=== PATIENT | male | born 1980 ===

== ENCOUNTER 2018-08-17 13:25 | Inpatient (IN) | payer OTHER ==
[2018-08-17] MEDS ORDERED: Albuterol/Ipratropium NEB.SOL* Albuterol 2.5 MG/Ipratropium 0.5 MG 3 ML INH PRN (14:32)
[2018-08-17] MEDS ORDERED: Gabapentin CAP(*) 300 MG PO ONE (14:36)
[2018-08-17] MEDS: Gabapentin CAP(*) 300 MG PO SCH (21:53)
[2018-08-17] MEDS: Enoxaparin(*) 30 MG/0.3 ML SYR SUBCUT SCH (21:53)
[2018-08-17] MEDS: Senna TAB PO SCH (21:55)
[2018-08-17] MEDS: Docusate CAP* 100 MG PO SCH (21:55)
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
[2018-08-18] MEDS: Enoxaparin(*) 30 MG/0.3 ML SYR SUBCUT SCH ×2 (08:06→21:28)
[2018-08-18] MEDS: Gabapentin CAP(*) 300 MG PO SCH ×3 (08:06→21:26)
[2018-08-18] MEDS: Docusate CAP* 100 MG PO SCH ×3 (08:06→21:27)
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
[2018-08-18] MEDS: oxyCODONE TAB* 5 MG TAB PO PRN (17:04)
[2018-08-18] MEDS: Senna TAB PO SCH (21:22)
[2018-08-18] MEDS: Acetaminophen TAB* 325 MG PO PRN (21:25)
[2018-08-18] MEDS: Melatonin 3 MG TAB PO PRN (21:28)
[2018-08-19] MEDS: Docusate CAP* 100 MG PO SCH ×2 (09:01→21:18)
[2018-08-19] MEDS: Enoxaparin(*) 30 MG/0.3 ML SYR SUBCUT SCH ×2 (09:01→21:17)
[2018-08-19] MEDS: Gabapentin CAP(*) 300 MG PO SCH ×3 (09:01→21:17)
[2018-08-19] MEDS: Acetaminophen TAB* 325 MG PO PRN ×2 (12:40→21:16)
[2018-08-19] MEDS: oxyCODONE TAB* 5 MG TAB PO PRN (12:52)
--- NOTE | 2018-08-19 17:01 | PN ---
Progress Note Date of Service: 08/19/18 Note: KEVIN ANTOINE was visited. Therapy notes read and reviewed. His pain is well controlled. He does report occasional jolts down his left leg, which quickly pass. Current Medications: Active Medications Generic Name Dose Route Start Last Admin Trade Name Freq PRN Reason Stop Dose Admin Acetaminophen 650 mg 08/18/18 18:38 08/19/18 12:40 Tylenol Tab* PO 650 mg Q6H PRN Administration PAIN Albuterol/Ipratropium 1 neb 08/17/18 14:32 Duoneb (Albuterol 2.5 Mg/Ipratropium 0.5 Mg) INH Q6H PRN SOB/WHEEZING Docusate Sodium 100 mg 08/17/18 21:00 08/19/18 09:01 Colace Cap* PO 100 mg BID ISREAL Administration Enoxaparin Sodium 30 mg 08/17/18 21:00 08/19/18 09:01 Lovenox(*) SUBCUT 30 mg BID ISREAL Administration Gabapentin 300 mg 08/17/18 21:00 08/19/18 14:18 Neurontin Cap(*) PO 300 mg TID ISREAL Administration Magnesium Hydroxide 30 ml 08/17/18 14:19 Milk Of Magnesia Liq* PO Q6H PRN CONSTIPATION Melatonin 3 mg 08/18/18 16:11 08/18/18 21:28 Melatonin PO 3 mg BEDTIME PRN Administration SLEEP Protocol Methocarbamol 750 mg 08/17/18 14:33 Robaxin Tab* PO TID PRN SPASMS Oxycodone HCl 5 mg 08/17/18 14:31 08/19/18 12:52 Roxycodone Tab* PO 5 mg Q4H PRN Administration PAIN - MODERATE TO SEVERE Senna 2 tab 08/17/18 21:00 08/18/18 21:22 Senokot Tab* PO Not Given BEDTIME [facility] Vital Signs: Vital Signs Temp Pulse Resp BP Pulse Ox 97.7 F 91 18 130/75 99 08/19/18 15:30 08/19/18 15:30 08/19/18 16:11 08/19/18 15:30 08/19/18 15:30 Exam: HEENT: NC/AT LUNGS: Clear HEART: Reg rhythm ABDOMEN: Soft. +bs EXTREMITIES: Right leg in splint. Both legs in IROM braces, right locked in extension, left 0-90 degrees. Right arm has bandage. NEUROLOGIC: Alert and oriented. Moves all 4 extremities, though lower extremity movement limited Assessment/Plan: 1. Right open femur fracture, right tib/fib frature, left acetabular fracture, right Radius fracture: NWB BLE. Braces on. NWB RUE, may bear weight thru elbow 2. Insomnia: Melatonin 3. Analgesia: Oxycodone, Gabapentin 4. DVT Prophylaxis: Lovenox 08/19/18 17:01
[2018-08-19] MEDS: Senna TAB PO SCH (21:18)
[2018-08-20 06:39] LABS: ABS Basophils 0.1 10^3/ul (0-0.2); ABS Eosinophils 0.3 10^3/ul (0-0.6); ABS Lymphocytes 1.9 10^3/ul (1.0-4.8); ABS Monocytes 0.9 10^3/ul (0-0.8); ABS Neutrophils 5.4 10^3/ul (1.5-7.7); ABS Nucleated RBC 0 10^3/ul; Eosinophil % 3.5 %; Hematocrit 36 % (42-52); Hemoglobin 11.9 g/dl (14.0-18.0); Lymphocyte % 22.5 %; Mean Corpuscular HGB Conc 33 g/dl (31-36); Mean Corpuscular Hemoglobin 28 pg (27-31); Mean Corpuscular Volume 86 fL (80-94); Mean Platelet Volume 7.8 fL (7.4-10.4); Nucleated Red Blood Cells % 0.1; Platelet Count 598 10^3/ul (150-450); Red Cell Distribution Width 16 % (10.5-15); White Blood Count 8.7 10^3/ul (3.5-10.8)
[2018-08-20 07:01] LABS: Albumin 3.1 g/dL (3.2-5.2); BUN/Creatinine Ratio 24.1 (8-20); EGFR Non-African American 109.8 (>60); Potassium 4.2 mmol/L (3.5-5.0); Total Bilirubin 0.6 mg/dL (0.2-1.0); Total Protein 6.1 g/dL (6.4-8.9)
[2018-08-20] MEDS: Docusate CAP* 100 MG PO SCH ×2 (08:54→22:08)
[2018-08-20] MEDS: Gabapentin CAP(*) 300 MG PO SCH ×3 (08:54→22:09)
[2018-08-20] MEDS: Acetaminophen TAB* 325 MG PO PRN ×2 (08:55→22:09)
[2018-08-20] MEDS: Enoxaparin(*) 30 MG/0.3 ML SYR SUBCUT SCH ×2 (08:55→22:10)
--- NOTE | 2018-08-20 12:59 | PMRUTEAM ---
PMRU: Team Meeting Current Status: Nursing: Current Status Skin Deviations [R knee and Incision thigh] Skin Deviations [L thigh] Other Skin Deviations [Abdomen] Incision Skin Deviations [Right Lateral Previous Access Point Chest] Skin Deviations [Left Arm] Abrasion Skin Deviations [Right Arm] Incision Skin Deviations [Right Hip] Incision Skin Deviations [Right Lower Incision Leg] Skin Deviations [Right Knee] Incision Skin Deviations [Left Lower Abrasion Leg] Skin Deviations [Left Hip] Incision Skin Deviations [Left Lateral Previous Access Point Chest] Skin Deviation Description [R Several dressings CDI knee and thigh] Skin Deviation Description [L Skin graft site w xeroform in place thigh] Skin Deviation Description [ Healing Abdomen] Skin Deviation Description [ Chest tube site Right Lateral Chest] Skin Deviation Description [ see earlier documentation Left Arm] Skin Deviation Description [ x2, 2 dressing CDI to R forearm Right Arm] Skin Deviation Description [ dressign clean, dry, intact Right Hip] Skin Deviation Description [ Splint w SUJEY CDI Right Lower Leg] Skin Deviation Description [ Three incisions, dressings clean, dry and intact Right Knee] Skin Deviation Description [ Knee immobilizer in place Left Lower Leg] Skin Deviation Description [ Skin graft site, dressing CDI Left Hip] Skin Deviation Description [ Old chest tube site CDI Left Lateral Chest] Physical Therapy: Current Status Bed Mobility Assistance Mod Assist Transfer Mobility Assistance Contact Guard Assist Transfer/Bed Mobility Slide Board Recommended Devices Transfer Mobility Comment Pt. is now able to use slide board for transfers bed to chair to bed. Ambulation Assistance Unable Stairs Assistance Not Tested Stairs Recommended Devices Two Rails Curb Not Tested Occupational Therapy: Current Status Upper Body Dressing Supervision Lower Body Dressing Mod Assist Bathing Min Assist Toileting Max Asst Toilet Transfer Contact Guard Assist,Min Assist Shower Transfer Total Assist Shower Transfer Progress TBD anticipated Eating Independent Rec Therapy: Current Status Summary of Assessment and Pt. had just been admitted to the unit - open to Clinical Impression conversation. Pt.'s family was in the room and they added to the conversation. Pt. identified with numerous interests and active involvement in them prior to admission. Treatment Goals Pt. will engage in leisure activities while on the unit. Treatment Plan Provide RT services and encourage involvement. Social Work: Current Status Discharge Plan return home with home care svs and family support Potential for Family Training pt's and mother are involved and supportive Anticipated Discharge Home Destination Discharge With return home with home care svs and family support Goals: Physical Therapy: Initial Goals Bed Mobility Assistance Independent Transfer Mobility Assistance Independent Transfer/Bed Mobility Slide Board Recommended Devices Wheelchair Propulsion Ability Independent Wheelchair Distance (ft) 300 Physical Therapy: Updated Goals Bed Mobility Assistance Independent Transfer/Bed Mobility Slide Board Recommended Devices Wheelchair Propulsion Ability Independent Wheelchair Distance (ft) 300 Home Exercise Program Independent Assistance Occupational Therapy: Initial Goals Goals to be Completed in (Days 14-21 days ) Upper Body Bathing Routine Modified Independent with Lower Body Bathing Routine Modified Independent with Upper Body Dressing Routine Independent Lower Body Dressing Routine Modified Independent with Toilet Hygeine and Clothing Supervision/Set Up Management Routine Toilet Transfer Routine Supervision/Set Up Tub Transfer Routine Supervision/Set Up Functional Transfers for ADL Supervision/Set Up Grooming Routine Independent Feeding Routine Independent Nutrition: Goals Intervention Goals 1. Adequate PO intake to maintain lean body mass and hydration w/o undesired wt loss 2. Intake will promote wound healing w/o additional pressure related skin breakdown 3. Maintain bowel regularity w/o constipation or diarrhea Social Work: Goals Discharge Plan return home with home care svs and family support Potential for Family Training pt's and mother are involved and supportive Anticipated Discharge Home Destination Discharge With return home with home care svs and family support Care Plan: Care Plan DVT Prophylaxis- Improve/Maintain Start: 08/18/18 02:33 Freq: QSHIFT Status: Active Target: Protocol: Activity Type Activity Date Activity User E-Sign Co-Sign Detail Recorded Client Recorded Date Recorded By Document 08/20/18 11:16 [id number] 08/20/18 11:19 [id number] 08/20/18 11:16 PMRU Outcome: DVT Prophylaxis Outcome/Goals Remains Free of DVT Complies with DVT Prophylaxis /Treatment Demonstrates Knowledge of DVT Prevention/ Treatment Progression Toward Outcome/Goals Progressing Discharge Planning - Improve/Maintain Start: 08/18/18 02:33 Freq: DAILY Status: Active Target: Protocol: Activity Type Activity Date Activity User E-Sign Co-Sign Detail Recorded Client Recorded Date Recorded By Document 08/20/18 06:13 [id number] 08/20/18 06:13 [id number] 08/20/18 06:13 PMRU Outcome: Discharge Planning Progression Toward Outcome/Goals Progressing Education-Improve/Maintain Start: 08/18/18 02:33 Freq: QSHIFT Status: Active Target: Protocol: Activity Type Activity Date Activity User E-Sign Co-Sign Detail Recorded Client Recorded Date Recorded By Document 08/20/18 11:16 [id number] 08/20/18 11:19 [id number] 08/20/18 11:16 PMRU Outcome: Education Outcome/Goals Encourage Questions Progression Toward Outcome/Goals Progressing /GI-Improve/Maintain Start: 08/18/18 02:33 Freq: QSHIFT Status: Active Target: Protocol: Activity Type Activity Date Activity User E-Sign Co-Sign Detail Recorded Client Recorded Date Recorded By Document 08/20/18 11:16 [id number] 08/20/18 11:19 [id number] 08/20/18 11:16 PMRU Outcome: Genitourinary/ Gastrointestinal Genitourinary- Outcome/Goals Maintain/ Achieve Urinary Continence Maintain/ Achieve Adequate Urinary Output Gastrointestinal-Outcome/Goals Maintain/ Achieve Bowel Regularity in Accordance with Pt's Baseline Remain Free of Emesis Prevent Constipation Progression Toward Outcome/Goals - Progressing Progression Toward Outcome/Goals - GI Progressing Medication Administration Start: 08/18/18 02:33 Freq: QSHIFT Status: Active Target: Protocol: Activity Type Activity Date Activity User E-Sign Co-Sign Detail Recorded Client Recorded Date Recorded By Document 08/20/18 11:16 [id number] 08/20/18 11:19 [id number] 08/20/18 11:16 PMRU Outcome: Medication Administration Assess Patient Knowledge/Teach Med Yes Education for all Meds Outcome/Goals Demonstrates Understanding Progression Towards Outcome/Goals Progressing Is Patient Going Home on Lovenox? No Neurological- Improve/Maintain Start: 08/18/18 02:33 Freq: QSHIFT Status: Active Target: Protocol: Activity Type Activity Date Activity User E-Sign Co-Sign Detail Recorded Client Recorded Date Recorded By Document 08/20/18 11:16 [id number] 08/20/18 11:19 [id number] 08/20/18 11:16 PMRU Outcome: Neurological Weakness/Aphasia Weakness Outcome/Goals Maintain/ Achieve Baseline Neurological Status Improve Neurological Status Prevent Avoidable Neurological Decline Demonstrate Knowledge of Prevention/Tx of Neuro Disorders/ Complication Maintain/ Improve Strength/ROM Progression Toward Outcome/Goals Progressing Safety- Improve/Maintain Start: 08/18/18 02:33 Freq: QSHIFT Status: Active Target: Protocol: Activity Type Activity Date Activity User E-Sign Co-Sign Detail Recorded Client Recorded Date Recorded By Document 08/20/18 11:16 [id number] 08/20/18 11:19 [id number] 08/20/18 11:16 PMRU Outcome: Safety Outcome/Goals Remain Free of Injury or Harm Cooperates with Safety Measures for Least Restrictive Environment Prevent Falls/ Injury Equipment Needed Progression Toward Outcome/Goals Progressing Skin- Improve/Maintain Start: 08/18/18 02:33 Freq: QSHIFT Status: Active Target: Protocol: Activity Type Activity Date Activity User E-Sign Co-Sign Detail Recorded Client Recorded Date Recorded By Document 08/20/18 11:16 [id number] 08/20/18 11:19 [id number] 08/20/18 11:16 PMRU Outcome: Skin Skin Risk Level Medium Skin Orders Heels Off Bed Outcome/Goals Maintain/ Improve Skin Intergrity Free from Decubitus Surgical Incisions Healing Progression Toward Outcome/Goals Progressing Medicine Note: Length of Stay: 2 weeks Anticipated Discharge Destination: Home Tentative Discharge Date: 09/04/18 Discharged to: Home
--- NOTE | 2018-08-20 19:36 | PN ---
Progress Note Date of Service: 08/20/18 Note: KEVIN ANTOINE was visited. Therapy notes read and reviewed. Patient was discussed in interdisciplinary team rounds. He is transferring fairly well. He would like a shower. I have a call into his orthopedic surgeon but no reply yet. Current Medications: Active Medications Generic Name Dose Route Start Last Admin Trade Name Freq PRN Reason Stop Dose Admin Acetaminophen 650 mg 08/18/18 18:38 08/20/18 08:55 Tylenol Tab* PO 650 mg Q6H PRN Administration PAIN Albuterol/Ipratropium 1 neb 08/17/18 14:32 Duoneb (Albuterol 2.5 Mg/Ipratropium 0.5 Mg) INH Q6H PRN SOB/WHEEZING Docusate Sodium 100 mg 08/17/18 21:00 08/20/18 08:54 Colace Cap* PO 100 mg BID ISREAL Administration Enoxaparin Sodium 30 mg 08/17/18 21:00 08/20/18 08:55 Lovenox(*) SUBCUT 30 mg BID ISREAL Administration Gabapentin 300 mg 08/17/18 21:00 08/20/18 14:23 Neurontin Cap(*) PO 300 mg TID ISREAL Administration Magnesium Hydroxide 30 ml 08/17/18 14:19 Milk Of Magnesia Liq* PO Q6H PRN CONSTIPATION Melatonin 3 mg 08/18/18 16:11 08/18/18 21:28 Melatonin PO 3 mg BEDTIME PRN Administration SLEEP Protocol Methocarbamol 750 mg 08/17/18 14:33 Robaxin Tab* PO TID PRN SPASMS Oxycodone HCl 5 mg 08/17/18 14:31 08/19/18 12:52 Roxycodone Tab* PO 5 mg Q4H PRN Administration PAIN - MODERATE TO SEVERE Senna 2 tab 08/17/18 21:00 08/19/18 21:18 Senokot Tab* PO Not Given BEDTIME [facility] Vital Signs: Vital Signs Temp Pulse Resp BP Pulse Ox 98.8 F 90 16 128/75 98 08/20/18 06:07 08/20/18 06:07 08/20/18 14:23 08/20/18 06:07 08/20/18 06:07 Lab Results: Laboratory Results - last 24 hr 08/20/18 08/20/18 06:01 06:01 WBC 8.7 RBC 4.20 Hgb 11.9 L Hct 36 L MCV 86 MCH 28 MCHC 33 RDW 16 H Plt Count 598 H MPV 7.8 Neut % (Auto) 62.5 Lymph % (Auto) 22.5 [place] % (Auto) 10.4 Eos % (Auto) 3.5 Baso % (Auto) 1.1 Absolute Neuts (auto) 5.4 Absolute Lymphs (auto) 1.9 Absolute Monos (auto) 0.9 H Absolute Eos (auto) 0.3 Absolute Basos (auto) 0.1 Absolute Nucleated RBC 0 Nucleated RBC % 0.1 Sodium 135 Potassium 4.2 Chloride 101 Carbon Dioxide 28 Anion Gap 6 BUN 19 Creatinine 0.79 Est GFR ( Amer) 132.8 Est GFR (Non-Af Amer) 109.8 BUN/Creatinine Ratio 24.1 H Glucose 102 H Calcium 9.0 Total Bilirubin 0.60 AST 41 H ALT 87 H Alkaline Phosphatase 258 H Total Protein 6.1 L Albumin 3.1 L Globulin 3.0 Albumin/Globulin Ratio 1.0 Exam: HEENT: NC/AT LUNGS: Clear HEART: Reg rhythm ABDOMEN: Soft. +bs EXTREMITIES: Right leg in splint. Both legs in IROM braces, right locked in extension, left 0-90 degrees. Right arm has bandage. NEUROLOGIC: Alert and oriented. Moves all 4 extremities, though lower extremity movement limited Assessment/Plan: 1. Right open femur fracture, right tib/fib frature, left acetabular fracture, right Radius fracture: NWB BLE. Braces on. NWB RUE, may bear weight thru elbow 2. Diaphragmatic rupture, s/p repair, rib fractures: Stable 3. Insomnia: Melatonin 4. Analgesia: Oxycodone, Gabapentin 5. DVT Prophylaxis: Lovenox 08/20/18 19:36
[2018-08-20] MEDS: Senna TAB PO SCH (22:08)
[2018-08-21] MEDS: Gabapentin CAP(*) 300 MG PO SCH ×3 (09:28→21:20)
[2018-08-21] MEDS: Enoxaparin(*) 30 MG/0.3 ML SYR SUBCUT SCH ×2 (09:30→21:20)
[2018-08-21] MEDS: Docusate CAP* 100 MG PO SCH ×2 (09:30→21:20)
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
[2018-08-21] MEDS: Acetaminophen TAB* 325 MG PO PRN (18:51)
[2018-08-21] MEDS: Senna TAB PO SCH (21:42)
[2018-08-22] MEDS: Gabapentin CAP(*) 300 MG PO SCH ×3 (07:42→20:22)
[2018-08-22] MEDS: Enoxaparin(*) 30 MG/0.3 ML SYR SUBCUT SCH ×2 (07:43→20:24)
[2018-08-22] MEDS: Docusate CAP* 100 MG PO SCH ×2 (07:43→20:22)
[2018-08-22] MEDS: Acetaminophen TAB* 325 MG PO PRN (14:12)
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
[2018-08-22] MEDS: Senna TAB PO SCH (20:21)
[2018-08-22] MEDS: oxyCODONE TAB* 5 MG TAB PO PRN (20:23)
[2018-08-23] MEDS: Gabapentin CAP(*) 300 MG PO SCH ×3 (09:10→20:05)
[2018-08-23] MEDS: Enoxaparin(*) 30 MG/0.3 ML SYR SUBCUT SCH ×2 (09:12→20:07)
[2018-08-23] MEDS: Docusate CAP* 100 MG PO SCH ×2 (09:13→20:04)
[2018-08-23] MEDS: Acetaminophen TAB* 325 MG PO PRN ×2 (14:15→20:05)
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
[2018-08-23] MEDS: Senna TAB PO SCH (20:07)
[2018-08-23] MEDS: Melatonin 3 MG TAB PO PRN (22:07)
[2018-08-24] MEDS: Docusate CAP* 100 MG PO SCH ×2 (09:41→19:41)
[2018-08-24] MEDS: Gabapentin CAP(*) 300 MG PO SCH ×3 (09:41→21:03)
[2018-08-24] MEDS: Enoxaparin(*) 30 MG/0.3 ML SYR SUBCUT SCH ×2 (09:41→21:04)
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
[2018-08-24] MEDS: Acetaminophen TAB* 325 MG PO PRN ×2 (14:48→21:03)
[2018-08-24] MEDS: Senna TAB PO SCH (19:42)
[2018-08-25] MEDS: Gabapentin CAP(*) 300 MG PO SCH ×3 (08:41→20:38)
[2018-08-25] MEDS: Docusate CAP* 100 MG PO SCH ×2 (08:41→20:38)
[2018-08-25] MEDS: Acetaminophen TAB* 325 MG PO PRN ×2 (08:41→20:39)
[2018-08-25] MEDS: Enoxaparin(*) 30 MG/0.3 ML SYR SUBCUT SCH ×2 (10:45→20:39)
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
[2018-08-25] MEDS: Senna TAB PO SCH (20:43)
[2018-08-26] MEDS: Docusate CAP* 100 MG PO SCH ×2 (09:31→20:12)
[2018-08-26] MEDS: Gabapentin CAP(*) 300 MG PO SCH ×3 (09:32→20:12)
[2018-08-26] MEDS: Acetaminophen TAB* 325 MG PO PRN ×2 (09:33→20:13)
[2018-08-26] MEDS: Enoxaparin(*) 30 MG/0.3 ML SYR SUBCUT SCH ×2 (09:34→20:15)
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
[2018-08-26] MEDS: Senna TAB PO SCH (20:12)
[2018-08-26] MEDS: Melatonin 3 MG TAB PO PRN (21:47)
[2018-08-27 06:56] LABS: ABS Basophils 0.1 10^3/ul (0-0.2); ABS Eosinophils 0.2 10^3/ul (0-0.6); ABS Lymphocytes 1.6 10^3/ul (1.0-4.8); ABS Nucleated RBC 0 10^3/ul; Eosinophil % 3.1 %; Hematocrit 38 % (42-52); Hemoglobin 12.6 g/dl (14.0-18.0); Lymphocyte % 20.3 %; Mean Corpuscular HGB Conc 33 g/dl (31-36); Mean Corpuscular Hemoglobin 28 pg (27-31); Mean Corpuscular Volume 86 fL (80-94); Mean Platelet Volume 7.8 fL (7.4-10.4); Nucleated Red Blood Cells % 0; Platelet Count 337 10^3/ul (150-450); Red Blood Count 4.46 10^6/ul (4.00-5.40); Red Cell Distribution Width 16 % (10.5-15); White Blood Count 7.9 10^3/ul (3.5-10.8)
[2018-08-27 07:17] LABS: Albumin 3.1 g/dL (3.2-5.2); Albumin/Globulin Ratio 0.9 (1-3); Calcium 8.9 mg/dL (8.6-10.3); EGFR Non-African American 109.8 (>60); Globulin 3.3 g/dL (2-4); Potassium 4.1 mmol/L (3.5-5.0); Total Bilirubin 0.5 mg/dL (0.2-1.0); Total Protein 6.4 g/dL (6.4-8.9)
[2018-08-27] MEDS: Gabapentin CAP(*) 300 MG PO SCH ×3 (08:17→21:03)
[2018-08-27] MEDS: Magnesium Hydroxide LIQ* 30 ML UDC PO PRN ×2 (08:17→14:25)
[2018-08-27] MEDS: Docusate CAP* 100 MG PO SCH ×2 (08:17→21:03)
[2018-08-27] MEDS: Acetaminophen TAB* 325 MG PO PRN ×3 (08:18→21:03)
[2018-08-27] MEDS: Enoxaparin(*) 30 MG/0.3 ML SYR SUBCUT SCH ×2 (08:19→21:04)
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
[2018-08-27] MEDS: Senna TAB PO SCH (20:57)
[2018-08-27] MEDS: Melatonin 3 MG TAB PO PRN (22:05)
[2018-08-28] MEDS: Gabapentin CAP(*) 300 MG PO SCH ×3 (07:44→21:19)
[2018-08-28] MEDS: Docusate CAP* 100 MG PO SCH ×2 (07:44→21:20)
[2018-08-28] MEDS: Enoxaparin(*) 30 MG/0.3 ML SYR SUBCUT SCH ×2 (07:44→21:20)
[2018-08-28] MEDS: Acetaminophen TAB* 325 MG PO PRN ×2 (11:07→18:23)
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
[2018-08-28] MEDS: Methocarbamol TAB* 500 MG PO PRN (15:54)
[2018-08-28] MEDS: Magnesium Hydroxide LIQ* 30 ML UDC PO PRN (16:50)
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
[2018-08-28] MEDS ORDERED: Polyethylene Glycol 3350* 17 GM PACKET PO PRN (18:42)
[2018-08-28] MEDS: Senna TAB PO SCH (22:10)
[2018-08-29] MEDS: Gabapentin CAP(*) 300 MG PO SCH ×3 (09:06→21:18)
[2018-08-29] MEDS: Acetaminophen TAB* 325 MG PO PRN ×2 (09:07→17:59)
[2018-08-29] MEDS: Docusate CAP* 100 MG PO SCH ×2 (09:07→21:03)
[2018-08-29] MEDS: Enoxaparin(*) 30 MG/0.3 ML SYR SUBCUT SCH ×2 (09:08→21:20)
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
[2018-08-29] MEDS: Senna TAB PO SCH (21:03)
[2018-08-30] MEDS: Gabapentin CAP(*) 300 MG PO SCH ×3 (07:37→20:53)
[2018-08-30] MEDS: Docusate CAP* 100 MG PO SCH ×2 (07:38→20:25)
[2018-08-30] MEDS: Enoxaparin(*) 30 MG/0.3 ML SYR SUBCUT SCH ×2 (07:38→20:53)
[2018-08-30] MEDS: Acetaminophen TAB* 325 MG PO PRN ×2 (10:33→17:18)
[2018-08-30] MEDS: Senna TAB PO SCH (20:25)
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
[2018-08-31] MEDS: Acetaminophen TAB* 325 MG PO PRN ×3 (04:59→20:49)
[2018-08-31] MEDS: Docusate CAP* 100 MG PO SCH ×2 (08:06→20:49)
[2018-08-31] MEDS: Gabapentin CAP(*) 300 MG PO SCH ×3 (08:06→20:49)
[2018-08-31] MEDS: Enoxaparin(*) 30 MG/0.3 ML SYR SUBCUT SCH ×2 (08:06→20:50)
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
[2018-08-31] MEDS: Methocarbamol TAB* 500 MG PO PRN (14:24)
[2018-08-31] MEDS: Melatonin 3 MG TAB PO PRN (20:50)
[2018-08-31] MEDS: Senna TAB PO SCH (21:12)
[2018-09-01] MEDS: Docusate CAP* 100 MG PO SCH ×2 (08:15→21:08)
[2018-09-01] MEDS: Enoxaparin(*) 30 MG/0.3 ML SYR SUBCUT SCH ×2 (08:16→21:10)
[2018-09-01] MEDS: Gabapentin CAP(*) 300 MG PO SCH ×3 (08:16→21:09)
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
[2018-09-01] MEDS: Acetaminophen TAB* 325 MG PO PRN ×2 (14:30→21:10)
[2018-09-01] MEDS: Senna TAB PO SCH (21:10)
[2018-09-01] MEDS: Melatonin 3 MG TAB PO PRN (21:11)
--- NOTE | 2018-09-02 08:28 | PN ---
Progress Note Date of Service: 09/02/18 Note: KEVIN ANTOINE was visited. Nursing notes read and reviewed. No chest pain, shortness of breath or abdominal pain. Had more right leg pain shooting last night prior to dose of gabapentin, but not interested in increasing dose at this time. Current Medications: Active Medications Generic Name Dose Route Start Last Admin Trade Name Freq PRN Reason Stop Dose Admin Acetaminophen 650 mg 08/18/18 18:38 09/01/18 21:10 Tylenol Tab* PO 650 mg Q6H PRN Administration PAIN Albuterol/Ipratropium 1 neb 08/17/18 14:32 Duoneb (Albuterol 2.5 Mg/Ipratropium 0.5 Mg) INH Q6H PRN SOB/WHEEZING Docusate Sodium 100 mg 08/17/18 21:00 09/01/18 21:08 Colace Cap* PO 100 mg BID ISREAL Administration Enoxaparin Sodium 30 mg 08/17/18 21:00 09/01/18 21:10 Lovenox(*) SUBCUT 30 mg BID ISREAL Administration Gabapentin 300 mg 08/17/18 21:00 09/01/18 21:09 Neurontin Cap(*) PO 300 mg TID ISREAL Administration Magnesium Hydroxide 30 ml 08/17/18 14:19 08/28/18 16:50 Milk Of Magnesia Liq* PO 30 ml Q6H PRN Administration CONSTIPATION Melatonin 3 mg 08/18/18 16:11 09/01/18 21:11 Melatonin PO 3 mg BEDTIME PRN Administration SLEEP Protocol Methocarbamol 750 mg 08/17/18 14:33 08/31/18 14:24 Robaxin Tab* PO 750 mg TID PRN Administration SPASMS Oxycodone HCl 5 mg 08/17/18 14:31 08/22/18 20:23 Roxycodone Tab* PO 5 mg Q4H PRN Administration PAIN - MODERATE TO SEVERE Polyethylene Glycol/Electrolytes 17 gm 08/28/18 18:42 Miralax* PO DAILY PRN CONSTIPATION Senna 2 tab 08/17/18 21:00 09/01/18 21:10 Senokot Tab* PO Not Given BEDTIME ISREAL Vital Signs: Vital Signs Temp Pulse Resp BP Pulse Ox 98.4 F 84 18 121/75 98 09/02/18 05:10 09/02/18 05:10 09/02/18 05:10 09/02/18 05:10 09/02/18 05:10 Exam: GENERAL: No acute distress. Alert and appropriate. LUNGS: Clear to auscultation bilaterally HEART: Regular rate and rhythm ABDOMEN: Soft, non-tender, non-distended, + bowel sounds. EXTREMITIES: Braces off from night time. Right leg dressing c/d/i. Right arm has bandage. No edema. NEUROLOGIC: Moves all 4 extremities, though lower extremity movement limited, especially at right toes since accident. Numbness and no DF/PF in right foot since accident. Assessment/Plan: 1. Right open femur fracture, right tib/fib frature, left acetabular fracture, right Radius fracture: WBAT BLE with braces on, and CAM walker on right foot. NWB RUE, may bear weight thru elbow. 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 f/u with Dr. Lambert in September. 2. Diaphragmatic rupture, s/p repair, rib fractures: Stable 3. Insomnia: Melatonin 4. Analgesia: Oxycodone rarely, Gabapentin 5. DVT Prophylaxis: Lovenox 6. Constipation: Avoiding opioids; using colace, senokot, MiraLax 09/02/18 08:28
[2018-09-02] MEDS: Gabapentin CAP(*) 300 MG PO SCH ×3 (09:08→21:10)
[2018-09-02] MEDS: Enoxaparin(*) 30 MG/0.3 ML SYR SUBCUT SCH ×2 (09:08→21:11)
[2018-09-02] MEDS: Docusate CAP* 100 MG PO SCH ×2 (09:09→21:09)
[2018-09-02] MEDS: Acetaminophen TAB* 325 MG PO PRN ×2 (14:11→21:09)
[2018-09-02] MEDS: Melatonin 3 MG TAB PO PRN (21:09)
[2018-09-02] MEDS: Senna TAB PO SCH (21:11)
[2018-09-03 05:02] LABS: ABS Basophils 0.1 10^3/ul (0-0.2); ABS Eosinophils 0.3 10^3/ul (0-0.6); ABS Lymphocytes 1.9 10^3/ul (1.0-4.8); ABS Monocytes 0.7 10^3/ul (0-0.8); ABS Neutrophils 2.9 10^3/ul (1.5-7.7); ABS Nucleated RBC 0 10^3/ul; Eosinophil % 5.4 %; Hematocrit 39 % (42-52); Hemoglobin 12.6 g/dl (14.0-18.0); Lymphocyte % 32.6 %; Mean Corpuscular HGB Conc 33 g/dl (31-36); Mean Corpuscular Hemoglobin 28 pg (27-31); Mean Corpuscular Volume 85 fL (80-94); Mean Platelet Volume 7.7 fL (7.4-10.4); Nucleated Red Blood Cells % 0; Platelet Count 264 10^3/ul (150-450); Red Blood Count 4.53 10^6/ul (4.00-5.40); Red Cell Distribution Width 15 % (10.5-15); White Blood Count 5.9 10^3/ul (3.5-10.8)
[2018-09-03 05:18] LABS: Albumin 3.5 g/dL (3.2-5.2); Albumin/Globulin Ratio 1.3 (1-3); BUN/Creatinine Ratio 16.3 (8-20); Calcium 9.1 mg/dL (8.6-10.3); EGFR Non-African American 108.2 (>60); Globulin 2.7 g/dL (2-4); Potassium 4.1 mmol/L (3.5-5.0); Total Bilirubin 0.4 mg/dL (0.2-1.0); Total Protein 6.2 g/dL (6.4-8.9)
[2018-09-03] MEDS: Enoxaparin(*) 30 MG/0.3 ML SYR SUBCUT SCH ×2 (08:10→21:12)
[2018-09-03] MEDS: Docusate CAP* 100 MG PO SCH ×2 (08:10→21:12)
[2018-09-03] MEDS: Gabapentin CAP(*) 300 MG PO SCH ×3 (08:10→21:12)
[2018-09-03] MEDS: Acetaminophen TAB* 325 MG PO PRN ×2 (13:36→21:18)
--- NOTE | 2018-09-03 16:18 | PN ---
Progress Note - Progress Note Date of Service: 09/03/18 Note: Rapid response team was called this morning to the shower at [facility]. Pt is a [facility] pt who was about to take a shower. His R leg wound was out of dressings for the second time ever and pt was upset about what he saw. RN was assisting him. He felt lightheaded and became diaphoretic an pale. SBP 137/80, HR initially 140 and regular, then after he calmed down was 113, 02 sat 98% on RA, pt stated that he had breakfast but BG was noted to be 89. Vermillion juice was provided. Suspect vagal near-syncope. Pt was transported back to his bed in [place] He did not take the shower.
--- NOTE | 2018-09-03 18:38 | PN ---
Progress Note Date of Service: 09/03/18 Note: KEVIN ANTOINE was visited. Therapy notes read and reviewed. He was getting ready for a shower this morning. After looking at his right leg wounds, he got dizzy and a little panicky. His HR went up and his BP dropped and a CAT team was called. When team arrived, the patient was already composing himself. He feels fine now. Bloodwork this am all fine. Current Medications: Active Medications Generic Name Dose Route Start Last Admin Trade Name Freq PRN Reason Stop Dose Admin Acetaminophen 650 mg 08/18/18 18:38 09/03/18 13:36 Tylenol Tab* PO 650 mg Q6H PRN Administration PAIN Albuterol/Ipratropium 1 neb 08/17/18 14:32 Duoneb (Albuterol 2.5 Mg/Ipratropium 0.5 Mg) INH Q6H PRN SOB/WHEEZING Docusate Sodium 100 mg 08/17/18 21:00 09/03/18 08:10 Colace Cap* PO Not Given BID ISREAL Enoxaparin Sodium 30 mg 08/17/18 21:00 09/03/18 08:10 Lovenox(*) SUBCUT 30 mg BID ISREAL Administration Gabapentin 300 mg 08/17/18 21:00 09/03/18 13:36 Neurontin Cap(*) PO 300 mg TID ISREAL Administration Magnesium Hydroxide 30 ml 08/17/18 14:19 08/28/18 16:50 Milk Of Magnesia Liq* PO 30 ml Q6H PRN Administration CONSTIPATION Melatonin 3 mg 08/18/18 16:11 09/02/18 21:09 Melatonin PO 3 mg BEDTIME PRN Administration SLEEP Protocol Methocarbamol 750 mg 08/17/18 14:33 08/31/18 14:24 Robaxin Tab* PO 750 mg TID PRN Administration SPASMS Oxycodone HCl 5 mg 08/17/18 14:31 08/22/18 20:23 Roxycodone Tab* PO 5 mg Q4H PRN Administration PAIN - MODERATE TO SEVERE Polyethylene Glycol/Electrolytes 17 gm 08/28/18 18:42 Miralax* PO DAILY PRN CONSTIPATION Senna 2 tab 08/17/18 21:00 09/02/18 21:11 Senokot Tab* PO Not Given BEDTIME ISREAL Vital Signs: Vital Signs Temp Pulse Resp BP Pulse Ox 98 F 100 18 128/82 98 09/03/18 14:20 09/03/18 14:20 09/03/18 15:45 09/03/18 14:20 09/03/18 14:20 Lab Results: Laboratory Results - last 24 hr 09/03/18 09/03/18 09/03/18 04:56 04:56 09:28 WBC 5.9 RBC 4.53 Hgb 12.6 L Hct 39 L MCV 85 MCH 28 MCHC 33 RDW 15 Plt Count 264 MPV 7.7 Neut % (Auto) 48.7 Lymph % (Auto) 32.6 Nolan % (Auto) 12.4 Eos % (Auto) 5.4 Baso % (Auto) 0.9 Absolute Neuts (auto) 2.9 Absolute Lymphs (auto) 1.9 Absolute Monos (auto) 0.7 Absolute Eos (auto) 0.3 Absolute Basos (auto) 0.1 Absolute Nucleated RBC 0 Nucleated RBC % 0 Sodium 136 Potassium 4.1 Chloride 102 Carbon Dioxide 30 Anion Gap 4 BUN 13 Creatinine 0.80 Est GFR ( Amer) 130.9 Est GFR (Non-Af Amer) 108.2 BUN/Creatinine Ratio 16.3 Glucose 105 H POC Glucose (mg/dL) 88 Calcium 9.1 Total Bilirubin 0.40 AST 15 ALT 22 Alkaline Phosphatase 139 H Total Protein 6.2 L Albumin 3.5 Globulin 2.7 Albumin/Globulin Ratio 1.3 Exam: GENERAL: No acute distress. Alert and appropriate. LUNGS: Clear to auscultation bilaterally HEART: Regular rate and rhythm ABDOMEN: Soft, non-tender, non-distended, + bowel sounds. EXTREMITIES: Braces off from night time. Right leg dressing c/d/i. Right arm has bandage. No edema. NEUROLOGIC: Moves all 4 extremities, though lower extremity movement limited, especially at right toes since accident. Numbness and no DF/PF in right foot since accident. Assessment/Plan: 1. Right open femur fracture, right tib/fib frature, left acetabular fracture, right Radius fracture: WBAT BLE with braces on, and CAM walker on right foot. NWB RUE, may bear weight thru elbow. 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 f/u with Dr. Lambert in September. 2. Diaphragmatic rupture, s/p repair, rib fractures: Stable 3. Insomnia: Melatonin 4. Analgesia: Oxycodone rarely, Gabapentin 5. DVT Prophylaxis: Lovenox, has filter 6. Constipation: Avoiding opioids; using colace, senokot, MiraLax 09/03/18 18:38
[2018-09-03] MEDS: Melatonin 3 MG TAB PO PRN (21:18)
[2018-09-03] MEDS: Senna TAB PO SCH (21:26)
[2018-09-04 05:40] VITALS: BP 129/81
[2018-09-04] MEDS: Docusate CAP* 100 MG PO SCH (07:42)
[2018-09-04] MEDS: Gabapentin CAP(*) 300 MG PO SCH ×2 (07:42→13:06)
[2018-09-04] MEDS: Enoxaparin(*) 30 MG/0.3 ML SYR SUBCUT SCH (13:06)
--- NOTE | 2018-09-05 02:52 | DS ---
CC: Dr. Paras Lambert * DISCHARGE SUMMARY: DATE OF ADMISSION: 08/17/18 DATE OF DISCHARGE: 09/04/18 DISCHARGE DIAGNOSES: 1. Status post open femur fracture, right leg. 2. Status post open tibia and fibular fracture, right leg. 3. Patellar fracture, right leg. 4. Acetabular fracture, left leg. 5. Radius and ulnar fracture, open, right arm. 6. Diaphragmatic rupture. 7. Multiple fracture of ribs bilaterally. 8. Splenic laceration. 9. Liver laceration. 10. Status post open reduction internal fixation of right tibia. 11. Open reduction internal fixation, right femur. 12. Open reduction internal fixation, right fibula. 13. Open reduction internal fixation, right radius. 14. Status post inferior vena cava filter placement. 15. Diaphragmatic repair. HOSPITAL COURSE: For complete history of the events leading up to his rehab stay, please the history and physical dictated by me on 08/17/18. While on the rehab unit, the patient remained fairly stable from a medical point of view. He received adequate analgesia with oral analgesics. He did develop constipation. He tried to refrain from opioids as a result and his last dose of opioids was on 08/22/18. He remained on gabapentin as well as Tylenol for pain control. The patient did have an episode of dizziness while taking a shower on 09/03/18 after he looked at the wounds of his right leg while getting ready to get in the shower. A CAT team was called, but no action was taken and it was felt that the patient was fine. The patient otherwise was medically stable. The patient worked with both Physical and Occupational Therapy and made good gains with both disciplines. With physical therapy at the time of admission, the patient required max assist to do bed mobility, was dependent with transfers, was unable to propel a wheelchair. With occupational therapy, he was supervision for upper body dressing, mod assist for lower body dressing, max assist for bathing, and total assistance for toileting and toilet transfers. By the time of discharge, the patient was independent with bed mobility, independent with transfers, independent ambulating 200 feet, stairs were not tested, independent with wheelchair propulsion, independent with toileting and toilet transfers. He did require setup for dressings and minimal assistance for his right shoes. The patient's came in for family training prior to discharge. He was discharged home with his , 09/04/18. DISCHARGE DIET: Regular. DISCHARGE MEDICATIONS: 1. Tylenol 650 mg every 6 hours as needed. 2. Colace 100 mg twice a day. 3. Neurontin 300 mg 3 times a day. 4. Melatonin 3 mg at bedtime as needed. 5. Robaxin 750 mg 3 times a day as needed. 6. Oxycodone 5 mg every 4 hours as needed. SERVICES AFTER DISCHARGE: Through [facility], he will have home nursing, home physical therapy, and home occupational therapy. Follow up with Dr. Paras Lambert on 09/26/18 as well as follow up with Dr. Pelaez at [facility] on 09/26/18. TIME SPENT: Time for this discharge was approximately 55 minutes, greater than half of which was spent with the patient and his describing post rehab medications, therapies, and appointments. [id number]/[facility] #: [id number] MTDD
== END 2018-09-04 13:20 | disposition home health service (06) | DRG 860 ==
LOC: PMRU 13:39
PROVIDERS: ADMIT Physical Medicine & Rehabilitation; ATTEND Physical Medicine & Rehabilitation
PROC: F07Z5ZZ Bed Mobility Treatment (ICD-10-PCS; principal; 2018-08-17)
PROC: F07Z9ZZ Gait Training/Functional Ambulation Treatment (ICD-10-PCS; 2018-08-17)
PROC: F07Z8ZZ Transfer Training Treatment (ICD-10-PCS; 2018-08-17)
PROC: F07Z4ZZ Wheelchair Mobility Treatment (ICD-10-PCS; 2018-08-17)
PROC: F08Z0ZZ Bathing/Showering Techniques Treatment (ICD-10-PCS; 2018-08-17)
PROC: F08Z1ZZ Dressing Techniques Treatment (ICD-10-PCS; 2018-08-17)
PROC: F08Z3ZZ Feeding/Eating Treatment (ICD-10-PCS; 2018-08-17)
DX: S72.91XE Unspecified fracture of right femur, subsequent encounter for open fracture type I or II with routine healing (principal); S82.201D Unspecified fracture of shaft of right tibia, subsequent encounter for closed fracture with routine healing; S82.401D Unspecified fracture of shaft of right fibula, subsequent encounter for closed fracture with routine healing; S32.402D Unspecified fracture of left acetabulum, subsequent encounter for fracture with routine healing; S52.91XD Unspecified fracture of right forearm, subsequent encounter for closed fracture with routine healing; V49.88XD Car occupant (driver) (passenger) injured in other specified transport accidents, subsequent encounter; S82.001D Unspecified fracture of right patella, subsequent encounter for closed fracture with routine healing; S52.201D Unspecified fracture of shaft of right ulna, subsequent encounter for closed fracture with routine healing; S22.43XD Multiple fractures of ribs, bilateral, subsequent encounter for fracture with routine healing; S27.80 Injury of diaphragm; S36.039D Unspecified laceration of spleen, subsequent encounter; K59.00 Constipation, unspecified; G47.00 Insomnia, unspecified; R55 Syncope and collapse
CPT/HCPCS: 36415; 80053; 85025; A9270-GY; J1650